=== PATIENT | male | born 1995 | race African-American/Black ===

== ENCOUNTER 2018-09-28 20:37 | Emergency (ER) | payer BC, OTHER | END 2018-09-28 21:16 | disposition home or self-care (01) | LOC: ERS 20:37 | DX: R51 Headache (principal); F90.9 Attention-deficit hyperactivity disorder, unspecified type | CPT/HCPCS: 99283 ==

== ENCOUNTER 2019-10-15 17:50 | Emergency (ER) | payer BC ==
[2019-10-15] MEDS ORDERED: Morphine 4 MG/ML VIAL ONE ×2 (18:36→19:53)
[2019-10-15] MEDS ORDERED: Ketorolac Tromethamine 30 MG/ML VIAL ONE ×2 (18:36)
[2019-10-15] MEDS ORDERED: Ondansetron PF 4 MG/2 ML Vial ONE (18:36)
[2019-10-15 18:43] LABS: #Eosinphils 0.2 thou/uL (0.0-0.7); #Lymphocytes 3.3 thou/uL (1.20-3.40); #Neutrophils 3.5 thou/uL (1.40-6.50); %Basophils 0.4 % (0.0-1.0); %Lymphocytes 40.8 % (21.0-51.0); %Monocytes 12.2 % (0.0-10.0); %Neutrophils 43.7 % (42.0-75.0); Hemoglobin 14.7 g/dL (14.0-18.0); Mean Corpuscular HGB CONC 32.8 g/dL (32.0-36.0); Mean Corpuscular Hemoglobin 28.2 pg (27.0-31.0); Mean Corpuscular Volume 85.8 fL (78.0-98.0); Mean Platelet Volume 7.9 fL (7.4-10.4); Platelet Count 261 thou/uL (130-400); RBC Distribution Width 12.3 % (11.5-14.5); Red Blood Cell (RBC) Count 5.22 mill/uL (4.70-6.10); White Blood Cell (WBC) Count 8.1 thou/uL (4.8-10.8)
[2019-10-15 18:46] LABS: Bacteria/HPF None Seen HPF (None Seen); Bilirubin Negative (Negative); Blood, Urine Trace (Negative); Clarity Clear (Clear); Glucose, Urine (Dipstick) Normal (Negative); Leukocyte Negative Leu/uL (Negative); Nitrite Negative (Negative); Protein, Urine (Dipstick) 30 mg/dL (Neg-Trace); RBC/HPF 0-3 HPF (0-3); Squamous Epithelial 0-3 HPF (0-3); Urobilinogen 3 mg/dL (Less than 2)
[2019-10-15 19:04] LABS: ALT (SGPT) 50 U/L (8-55); AST (SGOT) 23 U/L (5-34); Albumin 4.3 g/dL (3.5-5.0); Alkaline Phosphatase 114 U/L (40-110); Anion Gap 12 mmol/L (10-20); BUN (Urea Nitrogen) 10 mg/dL (8.9-20.6); Bilirubin, Total 0.3 mg/dL (0.2-1.2); Calc. Creatinine Clearance 0 mL/min (70-130); Calcium 9.6 mg/dL (7.8-10.44); Carbon Dioxide 30 mmol/L (22-29); Chloride 105 mmol/L (98-107); Estimated GFR-MDRD Greater than 90; Globulin 3.1 g/dL (2.4-3.5); Glucose 129 mg/dL (70-105); Potassium 3.8 mmol/L (3.5-5.1); Protein, Total 7.4 g/dL (6.0-8.3); Sodium 143 mmol/L (136-145)
--- NOTE | 2019-10-15 19:26 | CT ---
CT ABDOMEN AND PELVIS PERFORMED WITHOUT CONTRAST ENHANCEMENT: 10/15/19 HISTORY: Right lower quadrant abdominal pain. Pain radiating to right testicle. The lung bases are clear. The liver shows fatty change. The spleen is within normal limits. The pancreas and gallbladder region s are unremarkable. Right and left adrenal glands are normal. The right and left kidneys are normal in size. Punctate upp er and lower pole right renal calculi are seen nonobstructing. There is also punctate left sided norman l calculi. Slightly larger 3 to 4 mm nonobstructing mid pole left renal calculus. There is no signifi cant dilatation of the right collecting system; however, there is a 1 to 2 mm right ureterovesical ju nction calculus present. There is no significant periaortic or mesenteric adenopathy. CT of pelvis performed without contrast enhancement. The appendix is normal. The bladder is decompres sed. No adenopathy or mass. IMPRESSION: 1. Approximately 1 to 2 mm right ureterovesical junction calculus associated with very minimal d ilatation of the right collecting system and ureter. 2. Bilateral renal calculi. 3. Fatty change of the liver. POS: [facility]
== END 2019-10-15 20:21 | disposition home or self-care (01) ==
LOC: ERS 17:50
DX: N20.1 Calculus of ureter (principal); F90.9 Attention-deficit hyperactivity disorder, unspecified type
CPT/HCPCS: 74176; 80053; 81003; 81015; 85025; 87086; 96361; 96374; 96375; 96376; J1885; J2270; J2405